=== PATIENT | female | born 1955 | race African-American/Black ===

== ENCOUNTER 2017-04-28 14:16 | Inpatient (IN) | payer MEDICAID ==
[~2017-04-28] VITALS: Ht 162.6 cm; Wt 55.8 kg
[~2017-04-28 14:16] MED LIST: ALBU18HF2 IH; ASPI-1159 PO; BIMA2.5D4 BOTHEYE; CARI350T27 PO; CLON2TAB4 PO; DORZ10DR7 BOTHEYE; FERR325T30 PO; HYDR12.529 PO; IBUP-2030 PO; IPRA4AER IH; LISI-604 PO; MIRT45TA4 PO; NAPH15DR66 BOTHEYE; NICO1PAT15 TD; OMEP20TA2 PO; QUET150T PO
[2017-04-28 15:22] LABS: HEMATOCRIT 32.5 % (36.0-48.0); HEMOGLOBIN 10.7 g/dL (12.0-16.0); MEAN CORPUSCULAR HEMOGLOBIN 25.8 pg (28.0-32.0); MEAN CORPUSCULAR VOLUME 78.6 fL (81.0-99.0); PLATELET 249 x1000/uL (130-400); RED BLOOD CELL COUNT 4.14 mill/uL (4.2-5.4); RED CELL DISTRIBUTION WIDTH 14.1 % (11.6-14.6)
[2017-04-28] MEDS ORDERED: KCL 20MEQ/100ML PREMIX 100 ML IV ONE (20:15)
[2017-04-28] MEDS ORDERED: SODIUM CHLORIDE 0.9% 1,000 ML IV ONE (20:23)
[2017-04-28] MEDS ORDERED: LORAZEPAM 2MG/ML CPJ IM ONE (21:00)
[2017-04-28] MEDS: LORAZEPAM 2MG/ML CPJ IM PRN (23:28)
[2017-04-28] MEDS ORDERED: LORAZEPAM 2MG/ML CPJ IV PRN (23:30)
[2017-04-29] MEDS ORDERED: BRIM.2 BOTHEYE (03:16)
[2017-04-29] MEDS: LORAZEPAM 2MG/ML CPJ IM PRN ×3 (03:32→17:05)
[2017-04-29] MEDS ORDERED: DORZ10DR7 EACHEYE (03:57)
[2017-04-29] MEDS ORDERED: QUET50TA PO (03:57)
[2017-04-29] MEDS ORDERED: OCD PO (03:57)
[2017-04-29] MEDS ORDERED: LISI10TA5 PO (03:57)
[2017-04-29] MEDS ORDERED: ACET1TAB14 PO (03:57)
[2017-04-29] MEDS ORDERED: MIRT15TA6 PO (03:57)
[2017-04-29] MEDS ORDERED: BACL-141 PO (03:57)
[2017-04-29] MEDS: BACLOFEN 10MG TABLET PO SCH ×3 (04:26→19:39)
[2017-04-29] MEDS ORDERED: CLONAZEPAM 0.5MG TABLET PO PRN (09:00)
[2017-04-29] MEDS: NICOTINE 21MG PATCH TOP SCH (09:00)
[2017-04-29] MEDS: ASPIRIN 81MG EC TABLET PO SCH (09:04)
[2017-04-29] MEDS: LISINOPRIL 10MG TABLET PO SCH (09:04)
[2017-04-29] MEDS: CALCIUM CARBONATE/VITAMIN D3 500MG TABLET PO SCH (09:04)
[2017-04-29] MEDS: LEVETIRACETAM 500MG TABLET PO SCH ×2 (09:04→17:00)
[2017-04-29] MEDS: OMEPRAZOLE 20MG CAPSULE EXTENDED RELEASE PO SCH (09:04)
[2017-04-29 12:59] LABS: CARBON DIOXIDE 27 mEq/L (21-32); CHLORIDE 108 mEq/L (98-107)
[2017-04-29] MEDS ORDERED: POTASSIUM CHLORIDE 20MEQ TABLET SR PO ONE (16:30)
[2017-04-29] MEDS ORDERED: POTASSIUM CHLORIDE 20MEQ TABLET SR PO NR (16:45)
[2017-04-29] MEDS ORDERED: POTASSIUM CHLORIDE INJ 40 MEQ in DEXT 5% WATER 250 ML IV NR (18:00)
[2017-04-29] MEDS: QUETIAPINE FUMARATE 50MG TABLET PO SCH (19:40)
[2017-04-30] MEDS: BACLOFEN 10MG TABLET PO SCH ×3 (03:17→20:17)
[2017-04-30] MEDS: OMEPRAZOLE 20MG CAPSULE EXTENDED RELEASE PO SCH ×2 (07:40→09:01)
[2017-04-30] MEDS: LEVETIRACETAM 500MG TABLET PO SCH ×3 (09:00→16:20)
[2017-04-30] MEDS: ASPIRIN 81MG EC TABLET PO SCH ×2 (09:00→09:01)
[2017-04-30] MEDS: CALCIUM CARBONATE/VITAMIN D3 500MG TABLET PO SCH ×2 (09:00→09:01)
[2017-04-30] MEDS: LISINOPRIL 10MG TABLET PO SCH (09:00)
[2017-04-30] MEDS: NICOTINE 21MG PATCH TOP SCH (09:01)
[2017-04-30] MEDS: LORAZEPAM 2MG/ML CPJ IM PRN (09:02)
[2017-04-30 09:32] LABS: BASOPHILS % 1.2 % (0.0-2.0); EOSINOPHILS % 0.7 % (0.0-5.0); HEMATOCRIT. 37.5 % (36.0-48.0); HEMOGLOBIN. 12.4 g/dL (12.0-16.0); LYMPHOCYTES % 38.1 % (20.0-50.0); MEAN CORPUSCULAR VOLUME 78.9 fL (81.0-99.0); MEAN PLATELET VOLUME 8.4 fl (7.4-10.4); MONOCYTES % 11.1 % (2.0-8.0); NEUTROPHILS % 48.9 % (40.0-76.0); PLATELET 237 x1000/uL (130-400); RED BLOOD CELL COUNT 4.75 mill/uL (4.2-5.4); RED CELL DISTRIBUTION WIDTH 14.1 % (11.6-14.6)
[2017-04-30 09:46] LABS: CARBON DIOXIDE 26 mEq/L (21-32); CHLORIDE 106 mEq/L (98-107)
[2017-04-30] MEDS: CARISOPRODOL 350 MG TABLET PO PRN (16:20)
[2017-04-30] MEDS: ACETAMINOPHEN WITH CODEINE 300/60MG TABLET PO PRN (20:05)
[2017-04-30] MEDS: QUETIAPINE FUMARATE 50MG TABLET PO SCH (20:17)
[2017-05-01] MEDS: CARISOPRODOL 350 MG TABLET PO PRN ×2 (00:11→17:03)
[2017-05-01] MEDS: CLONAZEPAM 0.5MG TABLET PO PRN (00:11)
[2017-05-01] MEDS: ACETAMINOPHEN WITH CODEINE 300/60MG TABLET PO PRN ×2 (05:06→17:36)
[2017-05-01] MEDS: BACLOFEN 10MG TABLET PO SCH ×3 (05:06→21:42)
[2017-05-01] MEDS: LORAZEPAM 2MG/ML CPJ IM PRN ×3 (05:46→21:42)
[2017-05-01 06:50] LABS: CARBON DIOXIDE 28 mEq/L (21-32); CHLORIDE 104 mEq/L (98-107)
[2017-05-01 06:51] LABS: BASOPHILS % 0.3 % (0.0-2.0); EOSINOPHILS % 0.4 % (0.0-5.0); HEMATOCRIT. 33.9 % (36.0-48.0); HEMOGLOBIN. 11.1 g/dL (12.0-16.0); LYMPHOCYTES % 39.8 % (20.0-50.0); MEAN CORPUSCULAR HEMOGLOBIN 25.8 pg (28.0-32.0); MEAN CORPUSCULAR VOLUME 78.8 fL (81.0-99.0); MEAN PLATELET VOLUME 8.2 fl (7.4-10.4); MONOCYTES % 8.2 % (2.0-8.0); NEUTROPHILS % 51.3 % (40.0-76.0); PLATELET 213 x1000/uL (130-400); RED BLOOD CELL COUNT 4.31 mill/uL (4.2-5.4); RED CELL DISTRIBUTION WIDTH 13.6 % (11.6-14.6)
[2017-05-01] MEDS: ASPIRIN 81MG EC TABLET PO SCH (08:27)
[2017-05-01] MEDS: LEVETIRACETAM 500MG TABLET PO SCH ×2 (08:27→17:03)
[2017-05-01] MEDS: CALCIUM CARBONATE/VITAMIN D3 500MG TABLET PO SCH (08:27)
[2017-05-01] MEDS: FAMOTIDINE 20MG TABLET PO SCH ×2 (08:27→21:41)
[2017-05-01] MEDS: LISINOPRIL 10MG TABLET PO SCH (08:27)
[2017-05-01] MEDS: NICOTINE 21MG PATCH TOP SCH (08:28)
[2017-05-01] MEDS ORDERED: POTASSIUM CHLORIDE 20MEQ TABLET SR PO NR (12:30)
[2017-05-01] MEDS: QUETIAPINE FUMARATE 50MG TABLET PO SCH (21:42)
[2017-05-02] MEDS: BACLOFEN 10MG TABLET PO SCH ×3 (04:00→21:30)
[2017-05-02] MEDS: LISINOPRIL 10MG TABLET PO SCH (09:00)
[2017-05-02] MEDS: ASPIRIN 81MG EC TABLET PO SCH (10:40)
[2017-05-02] MEDS: NICOTINE 21MG PATCH TOP SCH (10:40)
[2017-05-02] MEDS: FAMOTIDINE 20MG TABLET PO SCH ×2 (10:40→21:30)
[2017-05-02] MEDS: CALCIUM CARBONATE/VITAMIN D3 500MG TABLET PO SCH (10:40)
[2017-05-02] MEDS: LEVETIRACETAM 500MG TABLET PO SCH ×2 (10:40→17:20)
[2017-05-02] MEDS: ACETAMINOPHEN WITH CODEINE 300/60MG TABLET PO PRN (17:20)
[2017-05-02] MEDS: LORAZEPAM 2MG/ML CPJ IM PRN (21:31)
[2017-05-02] MEDS: QUETIAPINE FUMARATE 50MG TABLET PO SCH (21:31)
[2017-05-03] MEDS: BACLOFEN 10MG TABLET PO SCH ×3 (04:56→20:12)
[2017-05-03] MEDS: LORAZEPAM 2MG/ML CPJ IM PRN (04:56)
[2017-05-03] MEDS: ACETAMINOPHEN WITH CODEINE 300/60MG TABLET PO PRN ×2 (08:34→15:35)
[2017-05-03] MEDS: FAMOTIDINE 20MG TABLET PO SCH ×2 (08:36→20:12)
[2017-05-03] MEDS: LEVETIRACETAM 500MG TABLET PO SCH ×2 (08:36→15:35)
[2017-05-03] MEDS: ASPIRIN 81MG EC TABLET PO SCH (08:36)
[2017-05-03] MEDS: LISINOPRIL 10MG TABLET PO SCH (08:58)
[2017-05-03] MEDS: CALCIUM CARBONATE/VITAMIN D3 500MG TABLET PO SCH (09:01)
[2017-05-03] MEDS: NICOTINE 21MG PATCH TOP SCH (09:01)
[2017-05-03 14:23] LABS: BASOPHILS % 0.3 % (0.0-2.0); EOSINOPHILS % 0.5 % (0.0-5.0); HEMATOCRIT. 30.5 % (36.0-48.0); HEMOGLOBIN. 9.8 g/dL (12.0-16.0); MEAN CORPUSCULAR HEMOGLOBIN 25.5 pg (28.0-32.0); MEAN CORPUSCULAR VOLUME 78.9 fL (81.0-99.0); MEAN PLATELET VOLUME 8.3 fl (7.4-10.4); MONOCYTES % 7.5 % (2.0-8.0); NEUTROPHILS % 42.7 % (40.0-76.0); PLATELET 195 x1000/uL (130-400); RED BLOOD CELL COUNT 3.86 mill/uL (4.2-5.4); RED CELL DISTRIBUTION WIDTH 13.6 % (11.6-14.6)
[2017-05-03 14:31] LABS: CARBON DIOXIDE 29 mEq/L (21-32); CHLORIDE 107 mEq/L (98-107)
[2017-05-03] MEDS: CLONAZEPAM 0.5MG TABLET PO PRN (15:35)
[2017-05-03] MEDS: DORZOLAMIDE 2% OPHTH 10 ML BOTTLE EACHEYE SCH (17:53)
[2017-05-03] MEDS: QUETIAPINE FUMARATE 50MG TABLET PO SCH (20:12)
[2017-05-04] MEDS: DORZOLAMIDE 2% OPHTH 10 ML BOTTLE EACHEYE SCH ×3 (05:21→17:24)
[2017-05-04] MEDS: BACLOFEN 10MG TABLET PO SCH ×3 (05:21→20:27)
[2017-05-04 07:02] LABS: BASOPHILS % 0.3 % (0.0-2.0); EOSINOPHILS % 0.6 % (0.0-5.0); HEMATOCRIT. 29.7 % (36.0-48.0); HEMOGLOBIN. 9.6 g/dL (12.0-16.0); LYMPHOCYTES % 50.8 % (20.0-50.0); MEAN CORPUSCULAR HEMOGLOBIN 25.4 pg (28.0-32.0); MEAN CORPUSCULAR VOLUME 78.5 fL (81.0-99.0); MEAN PLATELET VOLUME 8.3 fl (7.4-10.4); MONOCYTES % 8.6 % (2.0-8.0); NEUTROPHILS % 39.7 % (40.0-76.0); PLATELET 193 x1000/uL (130-400); RED BLOOD CELL COUNT 3.79 mill/uL (4.2-5.4); RED CELL DISTRIBUTION WIDTH 13.4 % (11.6-14.6)
[2017-05-04 07:12] LABS: CHLORIDE 107 mEq/L (98-107)
[2017-05-04 07:36] LABS: CARBON DIOXIDE 27 mEq/L (21-32)
[2017-05-04] MEDS: LISINOPRIL 10MG TABLET PO SCH (09:00)
[2017-05-04] MEDS: NICOTINE 21MG PATCH TOP SCH (09:00)
[2017-05-04] MEDS: LEVETIRACETAM 500MG TABLET PO SCH ×2 (09:30→17:24)
[2017-05-04] MEDS: FAMOTIDINE 20MG TABLET PO SCH ×2 (09:31→20:27)
[2017-05-04] MEDS: ASPIRIN 81MG EC TABLET PO SCH (09:31)
[2017-05-04] MEDS: CALCIUM CARBONATE/VITAMIN D3 500MG TABLET PO SCH (09:31)
[2017-05-04] MEDS: CARISOPRODOL 350 MG TABLET PO PRN ×2 (09:47→22:31)
[2017-05-04] MEDS ORDERED: LORAZEPAM 2MG/ML CPJ IV PRN (11:45)
[2017-05-04] MEDS ORDERED: ACETAMINOPHEN 325MG TABLET PO PRN (14:45)
[2017-05-04] MEDS ORDERED: ONDANSETRON HCL 4MG/2ML VIAL IV PRN (14:45)
[2017-05-04] MEDS: HYDROCODONE/ACETAMINOPHEN 5/325MG TABLET PO PRN (15:41)
[2017-05-04] MEDS: QUETIAPINE FUMARATE 50MG TABLET PO SCH (20:27)
[2017-05-04] MEDS: ACETAMINOPHEN WITH CODEINE 300/60MG TABLET PO PRN (20:28)
[2017-05-04] MEDS: BRIMONIDINE 0.2% OPHTH DROPS 5ML BOTHEYE SCH (22:24)
[2017-05-05] MEDS: BACLOFEN 10MG TABLET PO SCH ×3 (04:15→20:43)
[2017-05-05] MEDS: ACETAMINOPHEN WITH CODEINE 300/60MG TABLET PO PRN ×3 (05:04→23:09)
[2017-05-05] MEDS: BRIMONIDINE 0.2% OPHTH DROPS 5ML BOTHEYE SCH ×3 (05:04→23:02)
[2017-05-05] MEDS: LISINOPRIL 10MG TABLET PO SCH (09:00)
[2017-05-05] MEDS: ASPIRIN 81MG EC TABLET PO SCH (09:04)
[2017-05-05] MEDS: FAMOTIDINE 20MG TABLET PO SCH ×2 (09:05→20:43)
[2017-05-05] MEDS: LEVETIRACETAM 500MG TABLET PO SCH ×2 (09:05→17:23)
[2017-05-05] MEDS: DORZOLAMIDE 2% OPHTH 10 ML BOTTLE EACHEYE SCH ×3 (09:05→17:24)
[2017-05-05] MEDS: NICOTINE 21MG PATCH TOP SCH (09:06)
[2017-05-05] MEDS: CALCIUM CARBONATE/VITAMIN D3 500MG TABLET PO SCH (09:12)
[2017-05-05] MEDS ORDERED: BIMA2.5D4 EACHEYE ×2 (14:59→15:37)
[2017-05-05] MEDS ORDERED: NON FORMULARY PATIENT HOME MED EA XX SCH (15:45)
[2017-05-05] MEDS ORDERED: NON FORMULARY PATIENT HOME MED EA OP SCH (16:00)
[2017-05-05] MEDS: QUETIAPINE FUMARATE 50MG TABLET PO SCH (20:43)
[2017-05-05] MEDS: LATANOPROST 0.005% OPHTH DROPS 2.5ML EACHEYE SCH (23:02)
[2017-05-06] MEDS: BACLOFEN 10MG TABLET PO SCH ×3 (04:38→19:42)
[2017-05-06] MEDS: BRIMONIDINE 0.2% OPHTH DROPS 5ML BOTHEYE SCH ×3 (05:20→21:16)
[2017-05-06 05:33] LABS: BASOPHILS % 0.4 % (0.0-2.0); EOSINOPHILS % 0.7 % (0.0-5.0); HEMATOCRIT. 27.9 % (36.0-48.0); HEMOGLOBIN. 9.1 g/dL (12.0-16.0); LYMPHOCYTES % 53.2 % (20.0-50.0); MEAN CORPUSCULAR HEMOGLOBIN 25.5 pg (28.0-32.0); MEAN CORPUSCULAR VOLUME 78.2 fL (81.0-99.0); MEAN PLATELET VOLUME 8.5 fl (7.4-10.4); MONOCYTES % 10.2 % (2.0-8.0); NEUTROPHILS % 35.5 % (40.0-76.0); PLATELET 160 x1000/uL (130-400); RED BLOOD CELL COUNT 3.57 mill/uL (4.2-5.4); RED CELL DISTRIBUTION WIDTH 13.4 % (11.6-14.6)
[2017-05-06 05:54] LABS: CARBON DIOXIDE 28 mEq/L (21-32); CHLORIDE 107 mEq/L (98-107)
[2017-05-06] MEDS: ASPIRIN 81MG EC TABLET PO SCH (08:15)
[2017-05-06] MEDS: LISINOPRIL 10MG TABLET PO SCH ×2 (08:15→08:20)
[2017-05-06] MEDS: LEVETIRACETAM 500MG TABLET PO SCH ×2 (08:16→17:36)
[2017-05-06] MEDS: FAMOTIDINE 20MG TABLET PO SCH ×4 (08:16→21:18)
[2017-05-06] MEDS: ACETAMINOPHEN WITH CODEINE 300/60MG TABLET PO PRN (08:19)
[2017-05-06] MEDS: DORZOLAMIDE 2% OPHTH 10 ML BOTTLE EACHEYE SCH ×3 (08:27→17:36)
[2017-05-06] MEDS: CALCIUM CARBONATE/VITAMIN D3 500MG TABLET PO SCH (08:27)
[2017-05-06] MEDS: NICOTINE 21MG PATCH TOP SCH (08:27)
[2017-05-06] MEDS: HYDROCODONE/ACETAMINOPHEN 5/325MG TABLET PO PRN (19:51)
[2017-05-06] MEDS: QUETIAPINE FUMARATE 50MG TABLET PO SCH ×3 (20:39→21:18)
[2017-05-06] MEDS: LATANOPROST 0.005% OPHTH DROPS 2.5ML EACHEYE SCH (21:15)
[2017-05-07] MEDS: BACLOFEN 10MG TABLET PO SCH ×3 (04:00→21:05)
[2017-05-07] MEDS: BRIMONIDINE 0.2% OPHTH DROPS 5ML BOTHEYE SCH ×4 (06:01→21:13)
[2017-05-07] MEDS: LEVETIRACETAM 500MG TABLET PO SCH ×2 (09:00→17:00)
[2017-05-07] MEDS: NICOTINE 21MG PATCH TOP SCH (09:00)
[2017-05-07] MEDS: DORZOLAMIDE 2% OPHTH 10 ML BOTTLE EACHEYE SCH ×3 (09:00→17:57)
[2017-05-07] MEDS: CALCIUM CARBONATE/VITAMIN D3 500MG TABLET PO SCH (09:00)
[2017-05-07] MEDS: FAMOTIDINE 20MG TABLET PO SCH ×2 (09:00→21:05)
[2017-05-07] MEDS: ASPIRIN 81MG EC TABLET PO SCH (09:00)
[2017-05-07] MEDS ORDERED: HYDRALAZINE 20MG/ML VIAL IV PRN (09:45)
[2017-05-07] MEDS: LISINOPRIL 10MG TABLET PO SCH (10:25)
[2017-05-07 20:11] VITALS: BP 147/92
[2017-05-07] MEDS: LATANOPROST 0.005% OPHTH DROPS 2.5ML EACHEYE SCH ×2 (21:00→21:05)
[2017-05-07] MEDS: QUETIAPINE FUMARATE 50MG TABLET PO SCH (21:05)
== END 2017-05-07 21:35 | DRG 52 ==
LOC: ER 14:19 → 7WST 20:31 → ENRESERV 21:44
PROVIDERS: ADMIT Internal Medicine; ATTEND Internal Medicine
PROC: 02HV33Z Insertion of Infusion Device into Superior Vena Cava, Percutaneous Approach (ICD-10-PCS; principal; 2017-05-03)
PROC: B548ZZA Ultrasonography of Superior Vena Cava, Guidance (ICD-10-PCS; 2017-05-03)
DX: G93.40 Encephalopathy, unspecified (principal); N17.0 Acute kidney failure with tubular necrosis; E87.6 Hypokalemia; D64.9 Anemia, unspecified; I12.9 Hypertensive chronic kidney disease with stage 1 through stage 4 chronic kidney disease, or unspecified chronic kidney disease; N18.9 Chronic kidney disease, unspecified; J45.909 Unspecified asthma, uncomplicated; F29 Unspecified psychosis not due to a substance or known physiological condition; F32.9 Major depressive disorder, single episode, unspecified; Z79.899 Other long term (current) drug therapy
CPT/HCPCS: 36415; 36569; 70551; 71010; 76770; 76937; 80048; 82962; 83735; 85025; 85027; 99285; C1725; C1769; C1893; J2060; J2405; J3480; J7030; J7050; J7060

== ENCOUNTER 2018-12-24 05:24 | Inpatient (IN) | payer MEDICAID ==
[~2018-12-24] VITALS: Ht 182.9 cm; Wt 86.2 kg
[~2018-12-24 05:24] MED LIST changes: +ACET1TAB14 PO; -ALBU18HF2 IH; -ASPI-1159 PO; -BIMA2.5D4 BOTHEYE; +BRIM.2 BOTHEYE; +CALC-30 PO; -CARI350T27 PO; -CLON2TAB4 PO; +DICL75TA5 PO; -DORZ10DR7 BOTHEYE; +DORZ10DR8 EACHEYE; -LISI-604 PO; +LISI10TA5 PO; -MIRT45TA4 PO; +MIRT45TA83 PO; -NAPH15DR66 BOTHEYE; -NICO1PAT15 TD; +OLAN10TA19 PO; -QUET150T PO; +TRAM50TA3 PO; +XALAO EACHEYE
[2018-12-24] MEDS ORDERED: TRANEXAMIC ACID 1,000 MG in SODIUM CHLORIDE 0.9% 100 ML IV SCH (07:00)
[2018-12-24] MEDS ORDERED: LACTATED RINGERS 1,000 ML IV SCH (07:30)
[2018-12-24] MEDS ORDERED: MAGNESIUM HYDROXIDE 400MG/5ML 30ML UDC PO PRN (08:15)
[2018-12-24] MEDS ORDERED: ONDANSETRON HCL 4MG/2ML INJ IV PRN ×2 (08:15→12:45)
[2018-12-24] MEDS ORDERED: ACETAMINOPHEN 325MG TABLET PO PRN (08:15)
[2018-12-24] MEDS ORDERED: EPHEDRINE SULFATE 50MG/ML VIAL ONE (08:24)
[2018-12-24] MEDS ORDERED: SUCCINYLCHOLINE CHLORIDE 200MG/10ML IV ONE (08:24)
[2018-12-24] MEDS ORDERED: PROPOFOL 200MG/20ML VIAL IV ONE (08:24)
[2018-12-24] MEDS ORDERED: LIDOCAINE HCL/PF 1% 10 MG/ML 5ML VIAL ONE (08:24)
[2018-12-24] MEDS ORDERED: DEXAMETHASONE 4MG/ML 1ML VIAL ONE (08:24)
[2018-12-24] MEDS ORDERED: PHENYLEPHRINE HCL 10 MG/ML 1ML (IV VIAL) IV ONE (08:24)
[2018-12-24] MEDS ORDERED: ONDANSETRON HCL 4MG/2ML INJ ONE (08:24)
[2018-12-24] MEDS ORDERED: METOCLOPRAMIDE HCL 10MG/2ML VIAL ONE (08:24)
[2018-12-24] MEDS ORDERED: NEOSTIGMINE METHYLSULFATE 1MG/ML 10 ML VIAL ONE (08:24)
[2018-12-24] MEDS ORDERED: GLYCOPYRROLATE 0.2 MG/ML 2ML VIAL ONE (08:24)
[2018-12-24] MEDS ORDERED: ROCURONIUM BROMIDE 10MG/ML VIAL 5ML IV ONE (08:24)
[2018-12-24] MEDS ORDERED: FENTANYL CITRATE/PF 50MCG/ML 2ML VIAL ONE (08:24)
[2018-12-24] MEDS ORDERED: MIDAZOLAM HCL 2 MG/2 ML VIAL ONE (08:24)
[2018-12-24] MEDS ORDERED: SODIUM CHLORIDE 0.9% 10ML VIAL ONE (08:24)
[2018-12-24] MEDS ORDERED: CEFAZOLIN SODIUM 1000MG/VIAL ONE (09:03)
[2018-12-24] MEDS: HYDROMORPHONE HCL/PF 2MG/ML CPJ IV PRN ×4 (12:48→13:35)
[2018-12-24] MEDS ORDERED: HYDROMORPHONE HCL/PF 2MG/ML CPJ ONE (12:49)
[2018-12-24] MEDS ORDERED: DIPHENHYDRAMINE INJ IV PRN (14:15)
[2018-12-24] MEDS ORDERED: NALOXONE INJ IV PRN (14:15)
[2018-12-24] MEDS ORDERED: HYDROMORPHONE PCA 10MG/50ML IV PRN (14:15)
[2018-12-24] MEDS ORDERED: ONDANSETRON INJ IV PRN (14:15)
[2018-12-24 15:15] VITALS: BP 115/61
[2018-12-24 16:00] VITALS: BP 115/61
[2018-12-24] MEDS: CELECOXIB 200MG CAPSULE PO SCH (18:23)
[2018-12-24] MEDS: DOCUSATE SODIUM 100MG CAPSULE PO SCH (18:23)
[2018-12-24 20:00] VITALS: BP 115/73
[2018-12-24] MEDS: CEFAZOLIN 2,000 MG in DEXT 5% WATER 100 ML IV SCH (22:01)
[2018-12-25] VITALS: BP 127/67
[2018-12-25 04:00] VITALS: BP 149/74
[2018-12-25] MEDS: CEFAZOLIN 2,000 MG in DEXT 5% WATER 100 ML IV SCH (05:26)
[2018-12-25 07:09] LABS: BASOPHILS % 0.1 % (0.0-2.0); HEMATOCRIT. 31.6 % (36.0-48.0); HEMOGLOBIN. 10.5 g/dL (12.0-16.0); LYMPHOCYTES % 19.4 % (20.0-50.0); MEAN CORPUSCULAR HEMOGLOBIN 27.6 pg (28.0-32.0); MEAN CORPUSCULAR VOLUME 83.2 fL (81.0-99.0); MEAN PLATELET VOLUME 7.6 fl (7.4-10.4); MONOCYTES % 9.9 % (2.0-8.0); NEUTROPHILS % 70.6 % (40.0-76.0); PLATELET 169 x1000/uL (130-400); RED CELL DISTRIBUTION WIDTH 13.3 % (11.6-14.6)
[2018-12-25 07:35] LABS: CHLORIDE 107 mEq/L (98-107)
[2018-12-25 08:00] VITALS: BP 123/64
[2018-12-25] MEDS: HYDROCHLOROTHIAZIDE 12.5MG CAPSULE PO SCH (09:49)
[2018-12-25] MEDS: CELECOXIB 200MG CAPSULE PO SCH ×2 (09:49→16:26)
[2018-12-25] MEDS: DOCUSATE SODIUM 100MG CAPSULE PO SCH ×2 (09:49→16:26)
[2018-12-25] MEDS: LISINOPRIL 10MG TABLET PO SCH (09:50)
[2018-12-25] MEDS: ENOXAPARIN 30MG/0.3ML SYR SUBCUT SCH ×2 (11:25→20:46)
[2018-12-25] MEDS: HYDROCODONE/ACETAMINOPHEN 10/325MG TABLET PO PRN ×3 (11:47→23:45)
[2018-12-25 12:00] VITALS: BP 136/71
[2018-12-25 16:00] VITALS: BP 137/77
[2018-12-25 20:00] VITALS: BP 123/68
[2018-12-26] VITALS: BP 104/61
[2018-12-26 04:00] VITALS: BP 126/69
[2018-12-26] MEDS: HYDROCODONE/ACETAMINOPHEN 10/325MG TABLET PO PRN ×2 (06:13→13:53)
[2018-12-26 08:00] VITALS: BP 108/69
[2018-12-26] MEDS: DOCUSATE SODIUM 100MG CAPSULE PO SCH (09:57)
[2018-12-26] MEDS: CELECOXIB 200MG CAPSULE PO SCH (09:57)
[2018-12-26] MEDS: HYDROCHLOROTHIAZIDE 12.5MG CAPSULE PO SCH (09:57)
[2018-12-26] MEDS: ENOXAPARIN 30MG/0.3ML SYR SUBCUT SCH (09:58)
[2018-12-26 12:00] VITALS: BP 140/72
[2018-12-26] MEDS: LISINOPRIL 10MG TABLET PO SCH (13:54)
[2018-12-26 16:00] VITALS: BP 123/66
[2018-12-26 16:10] VITALS: BP 123/66
== END 2018-12-26 17:45 | disposition home or self-care (01) | DRG 302 ==
LOC: OR 05:24 → 6EST 05:25
PROVIDERS: ADMIT Orthopaedic Surgery; ATTEND Orthopaedic Surgery
PROC: 0SRC0J9 Replacement of Right Knee Joint with Synthetic Substitute, Cemented, Open Approach (ICD-10-PCS; principal; 2018-12-24)
PROC: 02HV33Z Insertion of Infusion Device into Superior Vena Cava, Percutaneous Approach (ICD-10-PCS; 2018-12-24)
PROC: B548ZZA Ultrasonography of Superior Vena Cava, Guidance (ICD-10-PCS; 2018-12-24)
DX: M17.11 Unilateral primary osteoarthritis, right knee (principal); K73.9 Chronic hepatitis, unspecified; M06.9 Rheumatoid arthritis, unspecified; E66.3 Overweight; M19.072 Primary osteoarthritis, left ankle and foot; E78.5 Hyperlipidemia, unspecified; F31.30 Bipolar disorder, current episode depressed, mild or moderate severity, unspecified; G89.29 Other chronic pain; I10 Essential (primary) hypertension; J45.909 Unspecified asthma, uncomplicated; M21.069 Valgus deformity, not elsewhere classified, unspecified knee; M21.379 Foot drop, unspecified foot; M65.9 Synovitis and tenosynovitis, unspecified; Z90.710 Acquired absence of both cervix and uterus; Z90.49 Acquired absence of other specified parts of digestive tract; G89.18 Other acute postprocedural pain
CPT/HCPCS: 36415; 36569; 73560; 76937; 77001; 80048; 86850; 86900; 88305; 88311; 97110; 97116; 97163; 97166; 97530; C1713; C1725; C1776; J0171; J0330; J0690; J1100; J1170; J1580; J1650; J2250; J2274; J2370; J2405; J2704; J2710; J2765; J2795; J3010; J3370; J3490; J7050; J7060; L1830; Q9968

== ENCOUNTER 2019-01-01 15:38 | Inpatient (IN) | payer MEDICAID ==
[~2019-01-01] VITALS: Ht 182.9 cm; Wt 86.2 kg
[2019-01-01] MEDS ORDERED: [UNRECOGNIZED DRUG - OTHER] (17:51)
[2019-01-01] MEDS ORDERED: HYDROCODONE/ACETAMINOPHEN 10/325MG TABLET PO ONE (20:00)
[2019-01-01 20:29] LABS: CHLORIDE 104 mEq/L (98-107); PROTHROMBIN TIME 10.3 sec (9.1-11.1)
[2019-01-01 20:31] LABS: HEMATOCRIT. 31.7 % (36.0-48.0); HEMOGLOBIN. 10.4 g/dL (12.0-16.0); MEAN CORPUSCULAR HEMOGLOBIN 27.3 pg (28.0-32.0); MEAN CORPUSCULAR VOLUME 83.7 fL (81.0-99.0); MEAN PLATELET VOLUME 6.8 fl (7.4-10.4); PLATELET 344 x1000/uL (130-400); RED BLOOD CELL COUNT 3.79 mill/uL (4.2-5.4); RED CELL DISTRIBUTION WIDTH 13.5 % (11.6-14.6)
[2019-01-01 21:20] LABS: NUCLEATED RED BLOOD CELLS 2 /100 WBC; PLATELET ESTIMATE NORMAL
[2019-01-01 23:03] VITALS: BP 122/58
[2019-01-02] VITALS: BP 122/58
[2019-01-02] MEDS ORDERED: HYDROCODONE/ACETAMINOPHEN 5/325MG TABLET PO PRN (01:30)
[2019-01-02] MEDS ORDERED: MORPHINE SULFATE 4 MG/ML CPJ (NOT FOR IM USE) IV PRN (01:30)
[2019-01-02 04:00] VITALS: BP 121/67
[2019-01-02] MEDS ORDERED: BUPIVACAINE HCL 0.5% (5MG/ML) 50ML ONE (06:56)
[2019-01-02] MEDS ORDERED: VANCOMYCIN HCL 500 MG/VIAL ONE ×2 (06:57→10:07)
[2019-01-02] MEDS ORDERED: NORMAL SALINE 0.9% 10 ML SYR ONE ×2 (06:57→09:34)
[2019-01-02] MEDS ORDERED: BACITRACIN 50,000 UNITS/VIAL ONE ×2 (06:57→09:35)
[2019-01-02] MEDS ORDERED: BUPIVACAINE/EPINEPH/PF 0.25%/0.0005 10ML ONE (06:59)
[2019-01-02] MEDS ORDERED: MORPHINE SULFATE/PF 1MG/ML 10ML AMP ONE (06:59)
[2019-01-02] MEDS ORDERED: PROPOFOL 200MG/20ML VIAL IV ONE (07:30)
[2019-01-02] MEDS ORDERED: FENTANYL CITRATE/PF 50MCG/ML 2ML VIAL ONE ×2 (07:30→11:20)
[2019-01-02] MEDS ORDERED: MIDAZOLAM HCL 2 MG/2 ML VIAL ONE (07:30)
[2019-01-02] MEDS ORDERED: LIDOCAINE HCL/PF 1% 10 MG/ML 5ML VIAL ONE (07:30)
[2019-01-02] MEDS ORDERED: LIDOCAINE HCL 1% 20ML VIAL (Pyxis) INJ ONE (07:40)
[2019-01-02] MEDS ORDERED: BUPIVACAINE HCL/PF 0.5% (5MG/ML) 10ML ONE (08:27)
[2019-01-02] MEDS ORDERED: TRANEXAMIC ACID 1,000 MG in SODIUM CHLORIDE 0.9% 100 ML IV NR (09:30)
[2019-01-02] MEDS ORDERED: GENTAMICIN SULF 40MG/ML 2ML VIAL ONE (09:34)
[2019-01-02] MEDS ORDERED: ONDANSETRON HCL 4MG/2ML INJ ONE (10:06)
[2019-01-02] MEDS ORDERED: GELATIN SPONGE,ABSORBABLE 12-7MM SPONGE ONE (10:37)
[2019-01-02] MEDS: PIPERACILLIN/TAZ 3.375G PREMIX 50 ML IV SCH ×2 (11:00→20:25)
[2019-01-02] MEDS ORDERED: ONDANSETRON HCL 4MG/2ML INJ IV PRN ×2 (12:00→12:15)
[2019-01-02] MEDS ORDERED: PIPERACILLIN/TAZ 3.375G PREMIX 50 ML IV SCH (12:00)
[2019-01-02] MEDS ORDERED: MAGNESIUM HYDROXIDE 400MG/5ML 30ML UDC PO PRN (12:00)
[2019-01-02] MEDS ORDERED: DEXAMETHASONE 10 MG/ML VIAL IV PRN (12:15)
[2019-01-02] MEDS ORDERED: DIPHENHYDRAMINE 50MG/ML VIAL IV PRN (12:15)
[2019-01-02] MEDS ORDERED: FENTANYL CITRATE/PF 50MCG/ML 2ML VIAL IV PRN (12:15)
[2019-01-02] MEDS: FENTANYL CITRATE/PF 50MCG/ML 2ML VIAL IV PRN ×4 (12:42→14:15)
[2019-01-02] MEDS ORDERED: HYDROMORPHONE PCA 10MG/50ML IV PRN (13:49)
[2019-01-02 16:00] VITALS: BP 135/77
[2019-01-02] MEDS: DOCUSATE SODIUM 100MG CAPSULE PO SCH (17:00)
[2019-01-02] MEDS: HYDROCODONE/ACETAMINOPHEN 10/325MG TABLET PO PRN (17:54)
[2019-01-02 20:00] VITALS: BP 121/62
[2019-01-02 22:23] LABS: CHLORIDE 118 mEq/L (98-107)
[2019-01-03] VITALS: BP 142/81
[2019-01-03] MEDS: VANCOMYCIN 1250MG in DEXTROSE 5% WATER 250ML IV SCH ×2 (03:30→03:37)
[2019-01-03 04:00] VITALS: BP 149/74
[2019-01-03] MEDS: ACETAMINOPHEN 325MG TABLET PO PRN (04:39)
[2019-01-03] MEDS: PIPERACILLIN/TAZ 3.375G PREMIX 50 ML IV SCH ×3 (06:06→19:17)
[2019-01-03] MEDS: HYDROCODONE/ACETAMINOPHEN 10/325MG TABLET PO PRN (06:16)
[2019-01-03] MEDS ORDERED: POTASSIUM CHLORIDE 20MEQ TABLET SR PO NR (06:33)
[2019-01-03 08:00] VITALS: BP 133/69
[2019-01-03] MEDS: HYDROCHLOROTHIAZIDE 12.5MG CAPSULE PO SCH (08:26)
[2019-01-03] MEDS: DOCUSATE SODIUM 100MG CAPSULE PO SCH ×2 (08:27→17:00)
[2019-01-03] MEDS: LISINOPRIL 10MG TABLET PO SCH (08:27)
[2019-01-03 09:08] LABS: BASOPHILS % 0.3 % (0.0-2.0); EOSINOPHILS % 0.2 % (0.0-5.0); HEMATOCRIT. 23.4 % (36.0-48.0); HEMOGLOBIN. 7.6 g/dL (12.0-16.0); MEAN CORPUSCULAR HEMOGLOBIN 27.1 pg (28.0-32.0); MEAN CORPUSCULAR VOLUME 83.5 fL (81.0-99.0); MEAN PLATELET VOLUME 6.9 fl (7.4-10.4); MONOCYTES % 14.5 % (2.0-8.0); PLATELET 281 x1000/uL (130-400); RED CELL DISTRIBUTION WIDTH 13.2 % (11.6-14.6)
[2019-01-03 09:15] LABS: CHLORIDE 108 mEq/L (98-107)
[2019-01-03 12:00] VITALS: BP 132/59
[2019-01-03] MEDS: ZINC SULFATE 220 MG ( 50 ) CAPSULE PO SCH (12:46)
[2019-01-03] MEDS: MULTIVITAMINS,THER W-MINERALS TABLET PO SCH (12:46)
[2019-01-03] MEDS: FERROUS SULFATE 325MG TABLET PO SCH ×2 (12:46→17:42)
[2019-01-03] MEDS: ASCORBIC ACID 500 MG TABLET PO SCH (12:47)
[2019-01-03 16:00] VITALS: BP 130/76
[2019-01-03] MEDS: VANCOMYCIN 1 G PREMIX 200 ML IV SCH (17:42)
[2019-01-03 20:00] VITALS: BP 111/62
[2019-01-03] MEDS: MUPIROCIN 2% OINT 22GM NS SCH (21:09)
[2019-01-03] MEDS: LATANOPROST 0.005% OPHTH DROPS 2.5ML EACHEYE SCH (21:10)
[2019-01-03] MEDS: ZOLPIDEM TARTRATE 5MG TABLET PO PRN (21:23)
[2019-01-04] VITALS: BP 113/70
[2019-01-04] MEDS: ACETAMINOPHEN 325MG TABLET PO PRN ×2 (00:59→20:26)
[2019-01-04] MEDS: PIPERACILLIN/TAZ 3.375G PREMIX 50 ML IV SCH ×3 (03:22→18:09)
[2019-01-04] MEDS: HYDROCODONE/ACETAMINOPHEN 10/325MG TABLET PO PRN ×3 (04:51→18:09)
[2019-01-04] MEDS: VANCOMYCIN 1 G PREMIX 200 ML IV SCH ×2 (06:22→18:09)
[2019-01-04 07:50] LABS: BASOPHILS % 0.2 % (0.0-2.0); CHLORIDE 104 mEq/L (98-107); EOSINOPHILS % 0.4 % (0.0-5.0); HEMATOCRIT. 23.4 % (36.0-48.0); HEMOGLOBIN. 7.7 g/dL (12.0-16.0); LYMPHOCYTES % 13.4 % (20.0-50.0); MEAN CORPUSCULAR HEMOGLOBIN 27.3 pg (28.0-32.0); MEAN CORPUSCULAR VOLUME 83.2 fL (81.0-99.0); MEAN PLATELET VOLUME 7.1 fl (7.4-10.4); PLATELET 279 x1000/uL (130-400); RED BLOOD CELL COUNT 2.82 mill/uL (4.2-5.4); RED CELL DISTRIBUTION WIDTH 13.4 % (11.6-14.6)
[2019-01-04 08:00] VITALS: BP 103/61
[2019-01-04] MEDS: LISINOPRIL 10MG TABLET PO SCH (09:27)
[2019-01-04] MEDS: HYDROCHLOROTHIAZIDE 12.5MG CAPSULE PO SCH (09:27)
[2019-01-04] MEDS: ASCORBIC ACID 500 MG TABLET PO SCH (09:27)
[2019-01-04] MEDS: MULTIVITAMINS,THER W-MINERALS TABLET PO SCH (09:27)
[2019-01-04] MEDS: DOCUSATE SODIUM 100MG CAPSULE PO SCH ×2 (09:27→18:09)
[2019-01-04] MEDS: ZINC SULFATE 220 MG ( 50 ) CAPSULE PO SCH (09:27)
[2019-01-04] MEDS: FERROUS SULFATE 325MG TABLET PO SCH ×3 (09:27→18:09)
[2019-01-04] MEDS: MUPIROCIN 2% OINT 22GM NS SCH ×2 (09:28→20:29)
[2019-01-04 11:58] VITALS: BP 111/69
[2019-01-04 16:05] VITALS: BP 111/60
[2019-01-04 20:00] VITALS: BP 103/58
[2019-01-04] MEDS: ZOLPIDEM TARTRATE 5MG TABLET PO PRN (20:26)
[2019-01-04] MEDS: LATANOPROST 0.005% OPHTH DROPS 2.5ML EACHEYE SCH (20:30)
[2019-01-04] MEDS ORDERED: POTASSIUM CHLORIDE 20MEQ TABLET SR PO SCH (22:45)
[2019-01-05] VITALS (7 sets, daily range): BP systolic 102–127; BP diastolic 53–68
[2019-01-05] MEDS: PIPERACILLIN/TAZ 3.375G PREMIX 50 ML IV SCH ×3 (03:30→18:05)
[2019-01-05] MEDS ORDERED: METHYLPREDNISOLONE ACETATE 40MG/ML VIAL IM SCH (05:00)
[2019-01-05] MEDS: VANCOMYCIN 1 G PREMIX 200 ML IV SCH ×2 (05:03→18:05)
[2019-01-05] MEDS: HYDROCODONE/ACETAMINOPHEN 10/325MG TABLET PO PRN ×4 (05:25→22:05)
[2019-01-05 06:42] LABS: CHLORIDE 105 mEq/L (98-107)
[2019-01-05 06:48] LABS: BASOPHILS % 0.2 % (0.0-2.0); EOSINOPHILS % 0.7 % (0.0-5.0); HEMOGLOBIN. 7.5 g/dL (12.0-16.0); LYMPHOCYTES % 11.6 % (20.0-50.0); MEAN CORPUSCULAR HEMOGLOBIN 28.3 pg (28.0-32.0); MEAN CORPUSCULAR VOLUME 82.6 fL (81.0-99.0); MONOCYTES % 10.1 % (2.0-8.0); NEUTROPHILS % 77.4 % (40.0-76.0); PLATELET 280 x1000/uL (130-400); RED BLOOD CELL COUNT 2.67 mill/uL (4.2-5.4); RED CELL DISTRIBUTION WIDTH 13.5 % (11.6-14.6)
[2019-01-05 06:57] LABS: VANCOMYCIN TROUGH 18.1 ug/mL (5.0-10.0)
[2019-01-05] MEDS ORDERED: LIDOCAINE HCL 1% 20ML VIAL (Pyxis) INJ INFIL SCH (07:00)
[2019-01-05] MEDS ORDERED: ETHYL CHLORIDE CAN TOP SCH (07:00)
[2019-01-05] MEDS: ASCORBIC ACID 500 MG TABLET PO SCH (09:25)
[2019-01-05] MEDS: DOCUSATE SODIUM 100MG CAPSULE PO SCH ×2 (09:25→18:05)
[2019-01-05] MEDS: HYDROCHLOROTHIAZIDE 12.5MG CAPSULE PO SCH (09:25)
[2019-01-05] MEDS: FERROUS SULFATE 325MG TABLET PO SCH ×3 (09:25→18:05)
[2019-01-05] MEDS: LISINOPRIL 10MG TABLET PO SCH (09:25)
[2019-01-05] MEDS: MULTIVITAMINS,THER W-MINERALS TABLET PO SCH (09:25)
[2019-01-05] MEDS: ZINC SULFATE 220 MG ( 50 ) CAPSULE PO SCH (09:25)
[2019-01-05] MEDS: MUPIROCIN 2% OINT 22GM NS SCH ×2 (09:26→20:24)
[2019-01-05] MEDS ORDERED: POTASSIUM CHLORIDE 20MEQ TABLET SR PO NR (16:00)
[2019-01-05] MEDS ORDERED: BUPIVACAINE HCL/PF 0.5% (5MG/ML) 10ML INFIL ONE (17:00)
[2019-01-05] MEDS: COLCHICINE 0.6MG TABLET PO SCH (18:05)
[2019-01-05] MEDS ORDERED: METHYLPREDNISOLONE SOD SUCC 40 MG/ML VIAL IV NR (18:30)
[2019-01-05] MEDS ORDERED: ETHYL CHLORIDE CAN TOP NR (18:30)
[2019-01-05] MEDS: BUPIVACAINE HCL/PF 0.5% (5MG/ML) 10ML INFIL NR ×3 (18:51→18:53)
[2019-01-05] MEDS: LATANOPROST 0.005% OPHTH DROPS 2.5ML EACHEYE SCH (20:24)
[2019-01-05] MEDS: ZOLPIDEM TARTRATE 5MG TABLET PO PRN (21:00)
[2019-01-06] VITALS: BP 105/59
[2019-01-06] MEDS: PIPERACILLIN/TAZ 3.375G PREMIX 50 ML IV SCH ×2 (02:49→12:05)
[2019-01-06 04:00] VITALS: BP 144/69
[2019-01-06] MEDS: VANCOMYCIN 1 G PREMIX 200 ML IV SCH ×2 (05:29→17:42)
[2019-01-06] MEDS: HYDROCODONE/ACETAMINOPHEN 10/325MG TABLET PO PRN ×3 (05:38→20:12)
[2019-01-06 08:00] VITALS: BP 123/71
[2019-01-06] MEDS: ZINC SULFATE 220 MG ( 50 ) CAPSULE PO SCH (09:15)
[2019-01-06] MEDS: MULTIVITAMINS,THER W-MINERALS TABLET PO SCH (09:16)
[2019-01-06] MEDS: DOCUSATE SODIUM 100MG CAPSULE PO SCH ×2 (09:16→17:42)
[2019-01-06] MEDS: COLCHICINE 0.6MG TABLET PO SCH (09:16)
[2019-01-06] MEDS: FERROUS SULFATE 325MG TABLET PO SCH ×3 (09:17→20:12)
[2019-01-06] MEDS: LISINOPRIL 10MG TABLET PO SCH (09:17)
[2019-01-06] MEDS: HYDROCHLOROTHIAZIDE 12.5MG CAPSULE PO SCH (09:17)
[2019-01-06] MEDS: ASCORBIC ACID 500 MG TABLET PO SCH (09:17)
[2019-01-06 16:00] VITALS: BP 122/61
[2019-01-06 16:01] LABS: BASOPHILS % 0.3 % (0.0-2.0); EOSINOPHILS % 0.1 % (0.0-5.0); HEMATOCRIT. 23.9 % (36.0-48.0); LYMPHOCYTES % 14.1 % (20.0-50.0); MEAN CORPUSCULAR HEMOGLOBIN 28.1 pg (28.0-32.0); MEAN CORPUSCULAR VOLUME 83.5 fL (81.0-99.0); MONOCYTES % 4.2 % (2.0-8.0); NEUTROPHILS % 81.3 % (40.0-76.0); PLATELET 331 x1000/uL (130-400); RED BLOOD CELL COUNT 2.86 mill/uL (4.2-5.4); RED CELL DISTRIBUTION WIDTH 13.9 % (11.6-14.6)
[2019-01-06] MEDS: MUPIROCIN 2% OINT 22GM NS SCH ×2 (17:39→21:00)
[2019-01-06 20:00] VITALS: BP 126/72
[2019-01-06] MEDS: LATANOPROST 0.005% OPHTH DROPS 2.5ML EACHEYE SCH (22:16)
[2019-01-06] MEDS: ZOLPIDEM TARTRATE 5MG TABLET PO PRN (22:43)
[2019-01-07 04:00] VITALS: BP 140/68
[2019-01-07] MEDS: HYDROCODONE/ACETAMINOPHEN 10/325MG TABLET PO PRN ×2 (04:32→10:23)
[2019-01-07] MEDS: VANCOMYCIN 1 G PREMIX 200 ML IV SCH ×2 (05:16→18:00)
[2019-01-07 08:00] VITALS: BP 123/72
[2019-01-07 08:17] LABS: BASOPHILS % 0.3 % (0.0-2.0); EOSINOPHILS % 0.9 % (0.0-5.0); HEMATOCRIT. 24.8 % (36.0-48.0); HEMOGLOBIN. 8.2 g/dL (12.0-16.0); LYMPHOCYTES % 17.8 % (20.0-50.0); MEAN CORPUSCULAR HEMOGLOBIN 27.7 pg (28.0-32.0); MEAN CORPUSCULAR VOLUME 83.3 fL (81.0-99.0); MEAN PLATELET VOLUME 6.9 fl (7.4-10.4); PLATELET 345 x1000/uL (130-400); RED BLOOD CELL COUNT 2.97 mill/uL (4.2-5.4); RED CELL DISTRIBUTION WIDTH 13.9 % (11.6-14.6)
[2019-01-07] MEDS: DOCUSATE SODIUM 100MG CAPSULE PO SCH ×2 (08:32→16:03)
[2019-01-07] MEDS: HYDROCHLOROTHIAZIDE 12.5MG CAPSULE PO SCH (08:38)
[2019-01-07] MEDS: LISINOPRIL 10MG TABLET PO SCH (08:38)
[2019-01-07] MEDS: ZINC SULFATE 220 MG ( 50 ) CAPSULE PO SCH (08:39)
[2019-01-07] MEDS: ASCORBIC ACID 500 MG TABLET PO SCH (08:39)
[2019-01-07] MEDS: MUPIROCIN 2% OINT 22GM NS SCH (08:39)
[2019-01-07] MEDS: FERROUS SULFATE 325MG TABLET PO SCH ×3 (08:39→17:50)
[2019-01-07] MEDS: HYDROXYCHLOROQUINE SULFATE 200MG TABLET PO SCH ×2 (08:39→17:00)
[2019-01-07] MEDS: MULTIVITAMINS,THER W-MINERALS TABLET PO SCH (08:39)
[2019-01-07] MEDS: COLCHICINE 0.6MG TABLET PO SCH (08:39)
[2019-01-07 12:00] VITALS: BP 106/63
[2019-01-07 12:52] VITALS: BP 106/63
[2019-01-07 15:54] VITALS: BP 111/66
[2019-01-07 16:27] VITALS: BP 111/66
[2019-01-07] MEDS ORDERED: HYDROCODONE/ACETAMINOPHEN 10/325MG TABLET PO NR (16:30)
[2019-01-08 09:10] LABS: G6PD RBC 2.94 x10E6/uL (3.77-5.28)
[2019-01-08 15:10] LABS: ANTI-DNA DOUBLE STRANDED QUANT < 1 IU/mL (0-9); G6PD QUANTITATIVE 325 (146-376)
[2019-01-09 15:12] LABS: ANGIOTENSION CONVERTING ENZYME < 15 U/L (14-82); ANTI-MYELOPEROXIDASE AB < 9.0 U/mL (0.0-9.0); ANTI-PROTEINASE 3 ABS < 3.5 U/mL (0.0-3.5)
[2019-01-10 09:06] LABS: ANTI-CARDIOLIPIN AB IGA < 9 APL U/mL (0-11); ANTI-CARDIOLIPIN AB IGG < 9 GPL U/mL (0-14); ANTI-CARDIOLIPIN AB IGM < 9 MPL U/mL (0-12)
[2019-01-11 15:08] LABS: ATYPICAL P-ANCA <1:20 titer (Neg:<1:20); CYTOPLASMIC C-ANCA <1:20 titer (Neg:<1:20); PERINUCLEAR P-ANCA <1:20 titer (Neg:<1:20)
[2019-01-12 09:06] LABS: ANA IFA Negative (.)
== END 2019-01-07 19:25 | DRG 302 ==
LOC: ER 15:38 → 6EST 21:00 → ENRESERV 22:06
PROVIDERS: ADMIT Internal Medicine; ATTEND Internal Medicine
PROC: 0SPC09Z Removal of Liner from Right Knee Joint, Open Approach (ICD-10-PCS; principal; 2019-01-02)
PROC: 0S9C3ZZ Drainage of Right Knee Joint, Percutaneous Approach (ICD-10-PCS; 2019-01-02)
PROC: 0SUV09Z Supplement Right Knee Joint, Tibial Surface with Liner, Open Approach (ICD-10-PCS; 2019-01-02)
PROC: 02HV33Z Insertion of Infusion Device into Superior Vena Cava, Percutaneous Approach (ICD-10-PCS; 2019-01-02)
PROC: B5181ZA Fluoroscopy of Superior Vena Cava using Low Osmolar Contrast, Guidance (ICD-10-PCS; 2019-01-02)
PROC: B548ZZA Ultrasonography of Superior Vena Cava, Guidance (ICD-10-PCS; 2019-01-02)
PROC: 0SCC0ZZ Extirpation of Matter from Right Knee Joint, Open Approach (ICD-10-PCS; 2019-01-02)
PROC: 30233N1 Transfusion of Nonautologous Red Blood Cells into Peripheral Vein, Percutaneous Approach (ICD-10-PCS; 2019-01-05)
PROC: 0S9D3ZZ Drainage of Left Knee Joint, Percutaneous Approach (ICD-10-PCS; 2019-01-05)
PROC: 3E0U33Z Introduction of Anti-inflammatory into Joints, Percutaneous Approach (ICD-10-PCS; 2019-01-05)
DX: M25.061 Hemarthrosis, right knee (principal); N17.9 Acute kidney failure, unspecified; D62 Acute posthemorrhagic anemia; M96.840 Postprocedural hematoma of a musculoskeletal structure following a musculoskeletal system procedure; I10 Essential (primary) hypertension; E78.5 Hyperlipidemia, unspecified; J45.909 Unspecified asthma, uncomplicated; F17.200 Nicotine dependence, unspecified, uncomplicated; F31.30 Bipolar disorder, current episode depressed, mild or moderate severity, unspecified; H40.9 Unspecified glaucoma; M11.262 Other chondrocalcinosis, left knee; M21.062 Valgus deformity, not elsewhere classified, left knee; M50.30 Other cervical disc degeneration, unspecified cervical region; M51.36 Other intervertebral disc degeneration, lumbar region; G89.29 Other chronic pain; M54.5 Low back pain; X58.XXXA Exposure to other specified factors, initial encounter; Z96.652 Presence of left artificial knee joint; M06.862 Other specified rheumatoid arthritis, left knee; M06.861 Other specified rheumatoid arthritis, right knee; Z90.49 Acquired absence of other specified parts of digestive tract; Z90.710 Acquired absence of both cervix and uterus; Z86.19 Personal history of other infectious and parasitic diseases; Z79.899 Other long term (current) drug therapy; Z22.322 Carrier or suspected carrier of Methicillin resistant Staphylococcus aureus; Z79.01 Long term (current) use of anticoagulants; Z91.19 Patient's noncompliance with other medical treatment and regimen; Y92.89 Other specified places as the place of occurrence of the external cause
CPT/HCPCS: 36415; 36569; 71045; 72052; 73560; 76937; 77001; 80048; 80202; 82164; 82270; 82955; 83520; 83540; 83550; 84550; 85041; 85044; 85651; 86147; 86225; 86256; 86431; 86850; 86880; 86900; 86920; 87070; 87075; 88304; 88311; 89060; 93005; 93970; 97116; 97162; 97530; 99285; C1725; J0171; J1030; J1170; J1200; J1580; J2250; J2270; J2274; J2405; J2543; J2704; J2920; J3010; J3370; J3490; J7040; J7050; J7060; P9016

== ENCOUNTER → 2020-03-31 | Outpatient (CLI) | payer MEDICAID ==
[~2020-03-31] MED LIST changes: -ACET1TAB14 PO; +AMLO5TAB88 PO; +FAMO20TA8 PO; +GABA-531 PO; +NETA2.5D EACHEYE; -OMEP20TA2 PO; +[UNRECOGNIZED DRUG - OTHER]
== END | disposition home or self-care (01) ==
LOC: LAB 08:57
PROVIDERS: ATTEND Neurological Surgery
DX: Z01.818 Encounter for other preprocedural examination (principal); Z11.59 Encounter for screening for other viral diseases
CPT/HCPCS: U0003-CS

== ENCOUNTER 2020-04-07 23:33 | Inpatient (IN) | payer MEDICAID ==
[~2020-04-07] VITALS: Ht 180.3 cm; Wt 90.7 kg
[2020-04-07 23:33] VITALS: BP_SYST 147; BP_DIAS 82; BP_DIAS 83
[~2020-04-07 23:33] MED LIST changes: -AMLO5TAB88 PO; -FAMO20TA8 PO; -GABA-531 PO
[2020-04-08] MEDS ORDERED: ACETAMINOPHEN 325MG TABLET PO PRN
[2020-04-08] MEDS ORDERED: MORPHINE SULFATE 4 MG/ML CPJ (NOT FOR IM USE) IV PRN
[2020-04-08] MEDS ORDERED: DIPHENHYDRAMINE 50MG/ML VIAL IV PRN
[2020-04-08] MEDS ORDERED: NALOXONE HCL 0.4 MG/ML 1ML VIAL IV PRN
[2020-04-08] MEDS ORDERED: ONDANSETRON HCL 4MG/2ML INJ IV PRN
[2020-04-08] MEDS: OXYCODONE HCL/ACETAMINOPHEN 5/325MG TABLET PO PRN ×4 (00:45→21:05)
[2020-04-08] MEDS: DEXT 5%/LACTATED RINGERS 1,000 ML IV SCH ×2 (02:04→13:24)
[2020-04-08] MEDS: PANTOPRAZOLE 40MG DR TABLET PO SCH (06:20)
[2020-04-08 06:48] LABS: BASOPHILS % 0.3 % (0.0-2.0); EOSINOPHILS % 1.3 % (0.0-5.0); HEMATOCRIT. 22.7 % (36.0-48.0); HEMOGLOBIN. 7.8 g/dL (12.0-16.0); LYMPHOCYTES % 19.6 % (20.0-50.0); MEAN CORPUSCULAR HEMOGLOBIN 28.3 pg (28.0-32.0); MEAN CORPUSCULAR VOLUME 82.5 fL (81.0-99.0); MONOCYTES % 10.7 % (2.0-8.0); NEUTROPHILS % 68.1 % (40.0-76.0); PLATELET 178 x1000/uL (130-400); RED BLOOD CELL COUNT 2.75 mill/uL (4.2-5.4); RED CELL DISTRIBUTION WIDTH 12.7 % (11.6-14.6)
[2020-04-08 07:36] LABS: CHLORIDE 109 mEq/L (98-107)
[2020-04-08 08:00] VITALS: BP 169/88
[2020-04-08] MEDS ORDERED: POTASSIUM CHLORIDE 20MEQ/PACKET PO NR (09:00)
[2020-04-08] MEDS: DOCUSATE SODIUM 100MG CAPSULE PO SCH ×2 (09:38→16:06)
[2020-04-08] MEDS: NICOTINE 7MG PATCH TD SCH (09:38)
[2020-04-08] MEDS: LISINOPRIL 10MG TABLET PO SCH (09:38)
[2020-04-08] MEDS: BRIMONIDINE 0.2% OPHTH DROPS 5ML BOTHEYE SCH ×2 (09:39→16:05)
[2020-04-08] MEDS: DORZOLAMIDE 2% OPHTH 10 ML BOTTLE EACHEYE SCH ×2 (09:39→16:05)
[2020-04-08] MEDS ORDERED: LACTULOSE 20G/30ML UDC PO PRN (11:00)
[2020-04-08] MEDS ORDERED: BISACODYL 10MG SUPP PR PRN ×3 (11:00)
[2020-04-08] MEDS ORDERED: NA PHOS,M-B/NA PHOS,DI-BA ENEMA 118ML PR NR (11:00)
[2020-04-08] MEDS: LACTULOSE 20G/30ML UDC PO SCH ×3 (11:49→18:40)
[2020-04-08] MEDS: FERROUS SULFATE 325MG TABLET PO SCH (16:06)
[2020-04-08 16:35] LABS: TOTAL IRON BINDING CAPACITY 191 ug/dL (250-450)
[2020-04-08 21:00] VITALS: BP 158/90
[2020-04-08] MEDS: POLYETHYLENE GLYCOL 3350 (17GM) 1 DOSE PACK PO SCH (21:00)
[2020-04-08] MEDS: OLANZAPINE 10MG TABLET PO SCH (21:03)
[2020-04-08] MEDS: MIRTAZAPINE 15MG TABLET PO SCH (21:04)
[2020-04-08] MEDS: LATANOPROST 0.005% OPHTH DROPS 2.5ML EACHEYE SCH (21:05)
[2020-04-08] MEDS: RHOPRESSA OPTHALMIC OP SCH (21:06)
[2020-04-08 21:25] LABS: CLARITY URINE CLEAR (CLEAR); COLOR URINE YELLOW (YELLOW); KETONES URINE NEGATIVE (NEGATIVE); LEUKOCYTE ESTERASE URINE NEGATIVE (NEGATIVE); NITRITE URINE NEGATIVE (NEGATIVE); OCCULT BLOOD URINE NEGATIVE (NEGATIVE); PH URINE 7.5 (4.5-8.0); PROTEIN URINE NEGATIVE (NEGATIVE); SPECIFIC GRAVITY URINE 1.015 (1.005-1.030)
[2020-04-09] MEDS: DEXT 5%/LACTATED RINGERS 1,000 ML IV SCH ×2 (03:20→16:00)
[2020-04-09] MEDS: OXYCODONE HCL/ACETAMINOPHEN 5/325MG TABLET PO PRN ×5 (05:12→18:50)
[2020-04-09] MEDS: PANTOPRAZOLE 40MG DR TABLET PO SCH (05:12)
[2020-04-09] MEDS: DOCUSATE SODIUM 100MG CAPSULE PO SCH ×3 (09:00→16:12)
[2020-04-09] MEDS: BRIMONIDINE 0.2% OPHTH DROPS 5ML BOTHEYE SCH ×3 (09:00→17:00)
[2020-04-09] MEDS: DORZOLAMIDE 2% OPHTH 10 ML BOTTLE EACHEYE SCH ×3 (09:00→17:00)
[2020-04-09] MEDS ORDERED: NA PHOS,M-B/NA PHOS,DI-BA ENEMA 118ML PR PRN (09:00)
[2020-04-09] MEDS: LISINOPRIL 10MG TABLET PO SCH (09:12)
[2020-04-09] MEDS: FERROUS SULFATE 325MG TABLET PO SCH ×3 (09:12→17:06)
[2020-04-09] MEDS: NICOTINE 7MG PATCH TD SCH (09:12)
[2020-04-09 09:17] VITALS: BP 150/68
[2020-04-09 20:00] VITALS: BP 136/64
[2020-04-09 20:12] LABS: BASOPHILS % 0.5 % (0.0-2.0); EOSINOPHILS % 1.9 % (0.0-5.0); HEMATOCRIT. 22.9 % (36.0-48.0); LYMPHOCYTES % 27.2 % (20.0-50.0); MEAN CORPUSCULAR HEMOGLOBIN 28.4 pg (28.0-32.0); MEAN CORPUSCULAR VOLUME 81.7 fL (81.0-99.0); MONOCYTES % 8.4 % (2.0-8.0); RED CELL DISTRIBUTION WIDTH 12.6 % (11.6-14.6)
[2020-04-09 20:18] LABS: CHLORIDE 108 mEq/L (98-107)
[2020-04-09 20:24] LABS: PHOSPHORUS 2.6 mg/dL (2.5-4.9)
[2020-04-09 20:25] LABS: TOTAL IRON BINDING CAPACITY 192 ug/dL (250-450)
[2020-04-09 20:32] LABS: FERRITIN 170 ng/mL (10-291)
[2020-04-09] MEDS: POLYETHYLENE GLYCOL 3350 (17GM) 1 DOSE PACK PO SCH (21:00)
[2020-04-09 21:07] LABS: FOLIC ACID (FOLATE) SERUM >20 ng/mL ng/mL (>5.38)
[2020-04-09 21:10] LABS: MEAN PLATELET VOLUME 7.1 fl (7.4-10.4)
[2020-04-09 21:11] LABS: PLATELET 219 x1000/uL (130-400)
[2020-04-09 21:18] LABS: VITAMIN B12 SERUM 917 pg/mL (211-911)
[2020-04-09] MEDS: LATANOPROST 0.005% OPHTH DROPS 2.5ML EACHEYE SCH (22:10)
[2020-04-09] MEDS: RHOPRESSA OPTHALMIC OP SCH (22:10)
[2020-04-09] MEDS: MIRTAZAPINE 15MG TABLET PO SCH (22:11)
[2020-04-09] MEDS: OLANZAPINE 10MG TABLET PO SCH (22:11)
[2020-04-09] MEDS: FAMOTIDINE 20MG TABLET PO SCH (22:11)
[2020-04-10] MEDS: DEXT 5%/LACTATED RINGERS 1,000 ML IV SCH (05:05)
[2020-04-10] MEDS: OXYCODONE HCL/ACETAMINOPHEN 5/325MG TABLET PO PRN ×2 (06:28→10:26)
[2020-04-10 08:00] VITALS: BP 173/90
[2020-04-10 08:14] VITALS: BP 173/90
[2020-04-10] MEDS: BRIMONIDINE 0.2% OPHTH DROPS 5ML BOTHEYE SCH (09:00)
[2020-04-10] MEDS: DOCUSATE SODIUM 100MG CAPSULE PO SCH ×2 (09:00→16:05)
[2020-04-10] MEDS: DORZOLAMIDE 2% OPHTH 10 ML BOTTLE EACHEYE SCH (09:00)
[2020-04-10] MEDS: NICOTINE 7MG PATCH TD SCH (09:30)
[2020-04-10] MEDS: LISINOPRIL 10MG TABLET PO SCH (09:31)
[2020-04-10] MEDS: FERROUS SULFATE 325MG TABLET PO SCH ×3 (09:31→16:04)
[2020-04-10] MEDS: GABAPENTIN 300MG CAPSULE PO SCH ×2 (13:57→21:21)
[2020-04-10] MEDS: OXYCODONE HCL 5MG TABLET PO PRN ×2 (13:58→18:37)
[2020-04-10] MEDS: FAMOTIDINE 20MG TABLET PO SCH ×2 (13:58→21:21)
[2020-04-10] MEDS ORDERED: POTASSIUM CHLORIDE 20MEQ TABLET SR PO NR (16:00)
[2020-04-10 20:00] VITALS: BP 131/64
[2020-04-10] MEDS: POLYETHYLENE GLYCOL 3350 (17GM) 1 DOSE PACK PO SCH (21:00)
[2020-04-10] MEDS: OLANZAPINE 10MG TABLET PO SCH (21:21)
[2020-04-10] MEDS: MIRTAZAPINE 15MG TABLET PO SCH (21:21)
[2020-04-10] MEDS: AMLODIPINE 5MG TABLET PO SCH (21:22)
[2020-04-10] MEDS: RHOPRESSA OPTHALMIC OP SCH (21:23)
[2020-04-10] MEDS: LATANOPROST 0.005% OPHTH DROPS 2.5ML EACHEYE SCH (21:23)
[2020-04-11] MEDS: OXYCODONE HCL 5MG TABLET PO PRN ×5 (01:23→17:49)
[2020-04-11] MEDS: GABAPENTIN 300MG CAPSULE PO SCH ×3 (05:49→21:27)
[2020-04-11] MEDS: DEXT 5%/LACTATED RINGERS 1,000 ML IV SCH ×2 (08:00→21:20)
[2020-04-11 08:19] VITALS: BP 151/79
[2020-04-11] MEDS: LISINOPRIL 10MG TABLET PO SCH (08:44)
[2020-04-11] MEDS: FAMOTIDINE 20MG TABLET PO SCH ×2 (08:44→21:28)
[2020-04-11] MEDS: DOCUSATE SODIUM 100MG CAPSULE PO SCH ×2 (08:44→17:48)
[2020-04-11] MEDS: FERROUS SULFATE 325MG TABLET PO SCH ×3 (08:44→17:48)
[2020-04-11] MEDS: AMLODIPINE 5MG TABLET PO SCH ×2 (08:45→21:28)
[2020-04-11] MEDS: NICOTINE 7MG PATCH TD SCH (09:44)
[2020-04-11 15:46] LABS: CHLORIDE 108 mEq/L (98-107)
[2020-04-11] MEDS ORDERED: POTASSIUM CHLORIDE 20MEQ TABLET SR PO NR (17:00)
[2020-04-11 20:00] VITALS: BP 117/58
[2020-04-11] MEDS: MIRTAZAPINE 15MG TABLET PO SCH (21:27)
[2020-04-11] MEDS: RHOPRESSA OPTHALMIC OP SCH (21:27)
[2020-04-11] MEDS: LATANOPROST 0.005% OPHTH DROPS 2.5ML EACHEYE SCH (21:27)
[2020-04-11] MEDS: OLANZAPINE 10MG TABLET PO SCH (21:28)
[2020-04-11] MEDS: POLYETHYLENE GLYCOL 3350 (17GM) 1 DOSE PACK PO SCH (21:28)
[2020-04-12] MEDS: GABAPENTIN 300MG CAPSULE PO SCH ×3 (06:16→21:06)
[2020-04-12] MEDS: OXYCODONE HCL 5MG TABLET PO PRN ×5 (06:16→20:15)
[2020-04-12 06:35] LABS: BASOPHILS % 0.8 % (0.0-2.0); EOSINOPHILS % 1.1 % (0.0-5.0); HEMATOCRIT. 23.9 % (36.0-48.0); HEMOGLOBIN. 8.1 g/dL (12.0-16.0); LYMPHOCYTES % 29.7 % (20.0-50.0); MEAN CORPUSCULAR HEMOGLOBIN 27.9 pg (28.0-32.0); MEAN CORPUSCULAR VOLUME 82.5 fL (81.0-99.0); MEAN PLATELET VOLUME 6.5 fl (7.4-10.4); MONOCYTES % 10.1 % (2.0-8.0); NEUTROPHILS % 58.3 % (40.0-76.0); PLATELET 384 x1000/uL (130-400); RED BLOOD CELL COUNT 2.89 mill/uL (4.2-5.4); RED CELL DISTRIBUTION WIDTH 12.9 % (11.6-14.6)
[2020-04-12 06:37] LABS: CHLORIDE 111 mEq/L (98-107)
[2020-04-12 07:57] VITALS: BP 132/74
[2020-04-12] MEDS: LISINOPRIL 10MG TABLET PO SCH (08:39)
[2020-04-12] MEDS: FERROUS SULFATE 325MG TABLET PO SCH ×3 (08:39→16:23)
[2020-04-12] MEDS: AMLODIPINE 5MG TABLET PO SCH ×2 (08:39→21:06)
[2020-04-12] MEDS: DOCUSATE SODIUM 100MG CAPSULE PO SCH ×2 (08:39→16:22)
[2020-04-12] MEDS: NICOTINE 7MG PATCH TD SCH (08:39)
[2020-04-12] MEDS: FAMOTIDINE 20MG TABLET PO SCH ×2 (10:22→21:05)
[2020-04-12] MEDS ORDERED: BISACODYL 10MG SUPP PR PRN (15:45)
[2020-04-12] MEDS ORDERED: BISACODYL 10MG SUPP PR NR (15:45)
[2020-04-12 20:00] VITALS: BP 109/47
[2020-04-12] MEDS: POLYETHYLENE GLYCOL 3350 (17GM) 1 DOSE PACK PO SCH (21:00)
[2020-04-12] MEDS: RHOPRESSA OPTHALMIC OP SCH (21:05)
[2020-04-12] MEDS: MIRTAZAPINE 15MG TABLET PO SCH (21:05)
[2020-04-12] MEDS: LATANOPROST 0.005% OPHTH DROPS 2.5ML EACHEYE SCH (21:05)
[2020-04-12] MEDS: OLANZAPINE 10MG TABLET PO SCH (21:06)
[2020-04-13] MEDS: OXYCODONE HCL 5MG TABLET PO PRN ×4 (03:15→18:23)
[2020-04-13 05:08] LABS: 25-HYDROXY VITAMIN D3 8.8 ng/mL (.)
[2020-04-13] MEDS: GABAPENTIN 300MG CAPSULE PO SCH ×3 (06:46→21:02)
[2020-04-13] MEDS ORDERED: SODIUM BICARBONATE 4% (2.4MEQ) 5ML VIAL IV ONE (07:26)
[2020-04-13] MEDS ORDERED: LIDOCAINE HCL 1% 20ML VIAL (Pyxis) INJ ONE (07:26)
[2020-04-13 08:00] VITALS: BP 109/52
[2020-04-13] MEDS: AMLODIPINE 5MG TABLET PO SCH ×2 (09:00→20:32)
[2020-04-13] MEDS: LISINOPRIL 10MG TABLET PO SCH (09:00)
[2020-04-13] MEDS: FERROUS SULFATE 325MG TABLET PO SCH ×3 (09:43→16:25)
[2020-04-13] MEDS: FAMOTIDINE 20MG TABLET PO SCH ×2 (09:43→20:32)
[2020-04-13] MEDS: NICOTINE 7MG PATCH TD SCH (09:43)
[2020-04-13] MEDS: DOCUSATE SODIUM 100MG CAPSULE PO SCH ×2 (09:43→16:24)
[2020-04-13] MEDS: DEXT 5%/LACTATED RINGERS 1,000 ML IV SCH ×2 (12:58)
[2020-04-13] MEDS ORDERED: ERGOCALCIFEROL 50000UNITS CAPSULE PO SCH (18:00)
[2020-04-13 20:00] VITALS: BP 121/71
[2020-04-13] MEDS: MIRTAZAPINE 15MG TABLET PO SCH (20:31)
[2020-04-13] MEDS: LATANOPROST 0.005% OPHTH DROPS 2.5ML EACHEYE SCH (20:31)
[2020-04-13] MEDS: POLYETHYLENE GLYCOL 3350 (17GM) 1 DOSE PACK PO SCH (20:31)
[2020-04-13] MEDS: RHOPRESSA OPTHALMIC OP SCH (20:31)
[2020-04-13] MEDS: OLANZAPINE 10MG TABLET PO SCH (20:32)
[2020-04-14] MEDS: OXYCODONE HCL 5MG TABLET PO PRN ×5 (00:42→19:36)
[2020-04-14] MEDS: DEXT 5%/LACTATED RINGERS 1,000 ML IV SCH (02:40)
[2020-04-14] MEDS: GABAPENTIN 300MG CAPSULE PO SCH ×3 (05:46→21:20)
[2020-04-14 07:29] VITALS: BP 145/78
[2020-04-14] MEDS: FAMOTIDINE 20MG TABLET PO SCH ×2 (08:00→21:21)
[2020-04-14] MEDS: FERROUS SULFATE 325MG TABLET PO SCH ×3 (08:57→16:23)
[2020-04-14] MEDS: DOCUSATE SODIUM 100MG CAPSULE PO SCH ×2 (08:57→16:23)
[2020-04-14] MEDS: AMLODIPINE 5MG TABLET PO SCH ×2 (08:57→21:21)
[2020-04-14] MEDS: LISINOPRIL 10MG TABLET PO SCH (08:57)
[2020-04-14] MEDS: NICOTINE 7MG PATCH TD SCH (08:57)
[2020-04-14] MEDS ORDERED: IPRATROPIUM/ALBUTEROL 0.5-3(2.5)MG/3ML NEB HHN PRN (13:30)
[2020-04-14] MEDS: BISACODYL 10MG SUPP PR SCH (14:30)
[2020-04-14] MEDS: LACTULOSE 20G/30ML UDC PO SCH ×3 (14:49→21:19)
[2020-04-14 20:00] VITALS: BP 134/61
[2020-04-14] MEDS: POLYETHYLENE GLYCOL 3350 (17GM) 1 DOSE PACK PO SCH (21:00)
[2020-04-14] MEDS: MIRTAZAPINE 15MG TABLET PO SCH (21:20)
[2020-04-14] MEDS: OLANZAPINE 10MG TABLET PO SCH (21:21)
[2020-04-14] MEDS: RHOPRESSA OPTHALMIC OP SCH (21:24)
[2020-04-14] MEDS: LATANOPROST 0.005% OPHTH DROPS 2.5ML EACHEYE SCH (21:24)
[2020-04-15] MEDS: GABAPENTIN 300MG CAPSULE PO SCH ×3 (05:38→21:15)
[2020-04-15] MEDS: OXYCODONE HCL 5MG TABLET PO PRN ×4 (05:57→20:31)
[2020-04-15 07:07] LABS: BASOPHILS % 0.4 % (0.0-2.0); EOSINOPHILS % 0.5 % (0.0-5.0); HEMATOCRIT. 23.5 % (36.0-48.0); HEMOGLOBIN. 7.8 g/dL (12.0-16.0); LYMPHOCYTES % 23.3 % (20.0-50.0); MEAN CORPUSCULAR HEMOGLOBIN 27.8 pg (28.0-32.0); MEAN CORPUSCULAR VOLUME 83.4 fL (81.0-99.0); MEAN PLATELET VOLUME 6.3 fl (7.4-10.4); MONOCYTES % 8.2 % (2.0-8.0); NEUTROPHILS % 67.6 % (40.0-76.0); PLATELET 379 x1000/uL (130-400); RED BLOOD CELL COUNT 2.82 mill/uL (4.2-5.4); RED CELL DISTRIBUTION WIDTH 13.2 % (11.6-14.6)
[2020-04-15 07:20] LABS: CHLORIDE 109 mEq/L (98-107)
[2020-04-15 07:42] LABS: HEPATITIS B SURFACE ANTIGEN NEGATIVE
[2020-04-15 08:11] LABS: HEPATITIS A AB IGM NEGATIVE (NEGATIVE)
[2020-04-15] MEDS: LISINOPRIL 10MG TABLET PO SCH (09:00)
[2020-04-15] MEDS: BISACODYL 10MG SUPP PR SCH (09:00)
[2020-04-15] MEDS: AMLODIPINE 5MG TABLET PO SCH ×2 (09:00→21:16)
[2020-04-15] MEDS: FERROUS SULFATE 325MG TABLET PO SCH ×3 (09:03→17:46)
[2020-04-15] MEDS: LACTULOSE 20G/30ML UDC PO SCH ×3 (09:04→17:00)
[2020-04-15] MEDS: NICOTINE 7MG PATCH TD SCH (09:04)
[2020-04-15] MEDS: FAMOTIDINE 20MG TABLET PO SCH ×2 (09:04→21:15)
[2020-04-15] MEDS: DOCUSATE SODIUM 100MG CAPSULE PO SCH ×2 (09:04→17:46)
[2020-04-15 09:05] VITALS: BP 107/50
[2020-04-15] MEDS ORDERED: BISACODYL 10MG SUPP PR NR (12:45)
[2020-04-15 20:00] VITALS: BP 121/57
[2020-04-15] MEDS: POLYETHYLENE GLYCOL 3350 (17GM) 1 DOSE PACK PO SCH (21:00)
[2020-04-15] MEDS: RHOPRESSA OPTHALMIC OP SCH (21:14)
[2020-04-15] MEDS: OLANZAPINE 10MG TABLET PO SCH (21:15)
[2020-04-15] MEDS: MIRTAZAPINE 15MG TABLET PO SCH (21:15)
[2020-04-15] MEDS: LATANOPROST 0.005% OPHTH DROPS 2.5ML EACHEYE SCH (21:15)
[2020-04-15 22:15] VITALS: BP 121/57
[2020-04-16] MEDS: GABAPENTIN 300MG CAPSULE PO SCH ×3 (05:54→21:35)
[2020-04-16] MEDS: OXYCODONE HCL 5MG TABLET PO PRN ×3 (05:57→19:44)
[2020-04-16 07:55] VITALS: BP 123/69
[2020-04-16 08:00] VITALS: BP 123/69
[2020-04-16] MEDS: FERROUS SULFATE 325MG TABLET PO SCH ×3 (08:35→17:17)
[2020-04-16] MEDS: LISINOPRIL 10MG TABLET PO SCH (08:35)
[2020-04-16] MEDS: AMLODIPINE 5MG TABLET PO SCH ×2 (08:35→21:00)
[2020-04-16] MEDS: FAMOTIDINE 20MG TABLET PO SCH ×2 (08:35→21:35)
[2020-04-16] MEDS: BISACODYL 10MG SUPP PR SCH (08:35)
[2020-04-16] MEDS: DOCUSATE SODIUM 100MG CAPSULE PO SCH ×2 (08:35→17:17)
[2020-04-16] MEDS: NICOTINE 7MG PATCH TD SCH (08:35)
[2020-04-16] MEDS ORDERED: GABA-531 PO (13:41)
[2020-04-16] MEDS ORDERED: AMLO5TAB88 PO (13:41)
[2020-04-16] MEDS ORDERED: FAMO20TA8 PO (13:41)
[2020-04-16 20:00] VITALS: BP 110/57
[2020-04-16] MEDS: POLYETHYLENE GLYCOL 3350 (17GM) 1 DOSE PACK PO SCH (21:00)
[2020-04-16] MEDS: LATANOPROST 0.005% OPHTH DROPS 2.5ML EACHEYE SCH (21:34)
[2020-04-16] MEDS: OLANZAPINE 10MG TABLET PO SCH (21:36)
[2020-04-16] MEDS: MIRTAZAPINE 15MG TABLET PO SCH (21:36)
[2020-04-16] MEDS: RHOPRESSA OPTHALMIC OP SCH (21:37)
[2020-04-17] MEDS: OXYCODONE HCL 5MG TABLET PO PRN ×3 (04:06→13:37)
[2020-04-17] MEDS: GABAPENTIN 300MG CAPSULE PO SCH ×2 (05:51→13:36)
[2020-04-17 08:04] VITALS: BP 119/83
[2020-04-17] MEDS: FAMOTIDINE 20MG TABLET PO SCH (08:40)
[2020-04-17] MEDS: NICOTINE 7MG PATCH TD SCH (08:40)
[2020-04-17] MEDS: AMLODIPINE 5MG TABLET PO SCH (08:40)
[2020-04-17] MEDS: DOCUSATE SODIUM 100MG CAPSULE PO SCH (08:40)
[2020-04-17] MEDS: LISINOPRIL 10MG TABLET PO SCH (08:40)
[2020-04-17] MEDS: FERROUS SULFATE 325MG TABLET PO SCH ×2 (08:40→13:36)
[2020-04-17] MEDS: BISACODYL 10MG SUPP PR SCH (09:00)
[2020-04-17 13:59] VITALS: BP 115/60
== END 2020-04-17 15:24 | disposition home health service (06) | DRG 347 ==
PROVIDERS: ADMIT Physical Medicine & Rehabilitation Spinal Cord Injury Medicine; ATTEND Internal Medicine
PROC: 02PYX3Z Removal of Infusion Device from Great Vessel, External Approach (ICD-10-PCS; principal; 2020-04-13)
PROC: 02HV33Z Insertion of Infusion Device into Superior Vena Cava, Percutaneous Approach (ICD-10-PCS; 2020-04-13)
PROC: B5181ZA Fluoroscopy of Superior Vena Cava using Low Osmolar Contrast, Guidance (ICD-10-PCS; 2020-04-13)
DX: M47.26 Other spondylosis with radiculopathy, lumbar region (principal); D69.6 Thrombocytopenia, unspecified; E11.42 Type 2 diabetes mellitus with diabetic polyneuropathy; E46 Unspecified protein-calorie malnutrition; G82.20 Paraplegia, unspecified; K59.2 Neurogenic bowel, not elsewhere classified; Z87.891 Personal history of nicotine dependence; Z90.710 Acquired absence of both cervix and uterus; K59.00 Constipation, unspecified; J44.9 Chronic obstructive pulmonary disease, unspecified; G89.4 Chronic pain syndrome; I10 Essential (primary) hypertension; F31.9 Bipolar disorder, unspecified; E87.6 Hypokalemia; E78.5 Hyperlipidemia, unspecified; D50.9 Iron deficiency anemia, unspecified; M75.02 Adhesive capsulitis of left shoulder; B19.20 Unspecified viral hepatitis C without hepatic coma; E66.9 Obesity, unspecified; M06.9 Rheumatoid arthritis, unspecified; M11.20 Other chondrocalcinosis, unspecified site; M48.061 Spinal stenosis, lumbar region without neurogenic claudication; Z96.653 Presence of artificial knee joint, bilateral; R53.81 Other malaise; Z68.27 Body mass index [BMI] 27.0-27.9, adult
CPT/HCPCS: 36415; 36573; 80048; 80053; 81003; 82270; 82306; 82607; 82728; 82746; 83540; 83550; 83735; 84100; 84134; 84443; 85025; 86705; 86709; 86803; 87340; 93970; 97110; 97112; 97116; 97163; 97167; 97530; 97535; 97760; C1725; J3490; J7121

== ENCOUNTER 2021-06-29 09:13 | Inpatient (IN) | payer MEDICARE, MEDICAID ==
[~2021-06-29] VITALS: Ht 180.3 cm; Wt 82.0 kg
[~2021-06-29 09:13] MED LIST changes: +AMLO5TAB88 PO; -CALC-30 PO; +DEXTROSE 50% WATER 50ML SYRINGE IV ONE; +EPINEPHRINE 0.1MG/ML (1:10,000) 10ML SYR ONE; +FAMO20TA8 PO; +GABA-532 PO; -IBUP-2030 PO; +LISI10TA26 PO; -LISI10TA5 PO; +SODIUM BICARBONATE 8.4% 1 MEQ/ML 50ML SYR IV ONE
[2021-06-29] MEDS ORDERED: SODIUM CHLORIDE 0.9% 1000ML BAG (SEPSIS BOLUS) IV ONE (09:30)
[2021-06-29] MEDS ORDERED: PIPERACILLIN/TAZ 3.375G PREMIX 50 ML IV ONE (09:30)
[2021-06-29] MEDS ORDERED: VANCOMYCIN 1 G PREMIX 200 ML IV ONE (09:30)
[2021-06-29 10:30] LABS: HEMATOCRIT. 35.5 % (36.0-48.0); HEMOGLOBIN. 11.4 g/dL (12.0-16.0); MEAN CORPUSCULAR HEMOGLOBIN 26.6 pg (28.0-32.0); MEAN CORPUSCULAR VOLUME 83.1 fL (81.0-99.0); MEAN PLATELET VOLUME 7.9 fl (7.4-10.4); PLATELET 222 x1000/uL (130-400); RED BLOOD CELL COUNT 4.27 mill/uL (4.2-5.4)
[2021-06-29 10:37] LABS: CHLORIDE 102 mEq/L (98-107)
[2021-06-29 10:40] LABS: INR 1.1; PROTHROMBIN TIME 11.3 sec (9.6-11.0)
[2021-06-29 11:44] LABS: PLATELET ESTIMATE NORMAL
[2021-06-29] MEDS ORDERED: LORAZEPAM 2MG/ML CPJ IM STA (12:10)
[2021-06-29] MEDS ORDERED: HALOPERIDOL LACTATE 5MG/ML VIAL IM ONE (12:15)
[2021-06-29] MEDS ORDERED: LIDOCAINE HCL 1% 20ML VIAL (Pyxis) INJ ONE (14:07)
[2021-06-29] MEDS ORDERED: LORAZEPAM 2MG/ML CPJ IM PRN (14:15)
[2021-06-29] MEDS: NOREPINEPHRINE 8 MG in DEXT 5% WATER 242 ML IV PRN (17:32)
[2021-06-29 17:43] LABS: CLARITY URINE CLEAR (CLEAR); COLOR URINE DARK YELLOW (YELLOW); KETONES URINE TRACE (NEGATIVE); LEUKOCYTE ESTERASE URINE TRACE (NEGATIVE); NITRITE URINE NEGATIVE (NEGATIVE); OCCULT BLOOD URINE NEGATIVE (NEGATIVE); PROTEIN URINE TRACE (NEGATIVE); SPECIFIC GRAVITY URINE 1.019 (1.005-1.030); UROBILINOGEN URINE 0.2 E.U./dL (0.2-1.0)
[2021-06-29] MEDS ORDERED: SODIUM CHLORIDE 0.9% 1,000 ML IV SCH (18:45)
[2021-06-29] MEDS ORDERED: ONDANSETRON HCL 4MG/2ML INJ IV PRN (19:15)
[2021-06-29] MEDS ORDERED: HYDROCODONE/ACETAMINOPHEN 5/325MG TABLET PO PRN (19:15)
[2021-06-29] MEDS ORDERED: LORAZEPAM 0.5MG TABLET PO PRN (19:15)
[2021-06-29] MEDS ORDERED: IPRATROPIUM/ALBUTEROL 0.5-3(2.5)MG/3ML NEB HHN PRN (19:15)
[2021-06-29] MEDS ORDERED: DOCUSATE SODIUM 100MG CAPSULE PO PRN (19:15)
[2021-06-29] MEDS ORDERED: ACETAMINOPHEN 325MG TABLET PO PRN ×2 (19:15)
[2021-06-29] MEDS ORDERED: CLONIDINE 0.1MG TABLET PO PRN (19:15)
[2021-06-29] MEDS ORDERED: OLANZAPINE 10MG TABLET PO SCH (21:00)
[2021-06-29] MEDS ORDERED: MIRTAZAPINE 15MG TABLET PO SCH (21:00)
[2021-06-29] MEDS ORDERED: PIPERACILLIN/TAZOBACTAM 3.375 G in DEXTROSE 5% WATER 50 ML IV SCH (21:00)
[2021-06-29] MEDS: FAMOTIDINE 20MG TABLET PO SCH (21:49)
[2021-06-29 23:24] LABS: BG BASE EXCESS -21.1 mmol/L (-2.0-2.0); BG CARBOXYHEMOGLOBIN 0.9 % (0.5-1.5); BG DEOXYHEMOGLOBIN 1.8 % (0.0-5.0); BG FRACTION INSPIRED OXYGEN 100; BG HCO3 ACT 10.1 mmol/L (22.0-26.0); BG METHEMOGLOBIN 0.3 % (0.0-1.5); BG OXYGEN SATURATION 98.2 % (92.0-98.5); BG PCO2 45.4 mmHg (35.0-45.0); BG PH 6.966 (7.350-7.450); BG PO2 146.1 mmHg (75.0-100.0); BG SAMPLE SITE RIGHT RADIAL; BG TOTAL HEMOGLOBIN 11.3 g/dL (12.0-18.0); BG VENT MODE VENT - AC
[2021-06-29] MEDS ORDERED: EPINEPHRINE 5 MG in SODIUM CHLORIDE 0.9% 245 ML IV STA (23:29)
[2021-06-29] MEDS ORDERED: SODIUM CHLORIDE 0.9% 1,000 ML IV ONE (23:30)
[2021-06-29] MEDS ORDERED: HYDROCORTISONE SOD SUCCINATE 100 MG/2 ML VIAL IV ONE (23:30)
[2021-06-30] MEDS ORDERED: EPINEPHRINE 5 MG in SODIUM CHLORIDE 0.9% 245 ML IV PRN
[2021-06-30] MEDS: NOREPINEPHRINE 8 MG in DEXT 5% WATER 242 ML IV PRN (01:56)
[2021-06-30] MEDS ORDERED: SODIUM CHLORIDE 0.9% IV PRN (03:00)
[2021-06-30] MEDS ORDERED: EPINEPHRINE IV PRN (03:00)
[2021-06-30] MEDS ORDERED: EPINEPHRINE 10 MG in SODIUM CHLORIDE 0.9% 240 ML IV PRN (05:30)
[2021-06-30] MEDS ORDERED: PIPERACILLIN/TAZOBACTAM 3.375 G in DEXTROSE 5% WATER 50 ML IV SCH (06:00)
[2021-06-30] MEDS ORDERED: FAMOTIDINE 20MG/2ML VIAL IV SCH (06:00)
[2021-06-30] MEDS ORDERED: SODIUM BICARBONATE 8.4% 1 MEQ/ML 50ML SYR IV SCH ×2 (06:30→06:45)
[2021-06-30] MEDS: FAMOTIDINE 20MG TABLET PO SCH (06:30)
[2021-06-30 07:00] VITALS: BP 119/78
[2021-06-30] MEDS ORDERED: PHENYLEPHRINE 100 MG in DEXT 5% WATER 240 ML IV PRN (08:15)
[2021-06-30] MEDS ORDERED: ATROPINE SULFATE 1MG/ML VIAL IV ONE (08:30)
[2021-06-30] MEDS ORDERED: ATROPINE SULFATE 1MG/10ML SYR ONE ×3 (08:36→09:25)
[2021-06-30] MEDS ORDERED: SODIUM BICARBONATE 8.4% 1 MEQ/ML 50ML SYR IV ONE (08:43)
[2021-06-30] MEDS ORDERED: DEXTROSE 50% WATER 50ML SYRINGE IV ONE ×3 (08:43→09:01)
[2021-06-30] MEDS ORDERED: EPINEPHRINE 0.1MG/ML (1:10,000) 10ML SYR ONE ×3 (08:43→09:23)
[2021-06-30] MEDS ORDERED: DEXTROSE 10% WATER 500 ML IV ONE (08:45)
[2021-06-30 09:20] LABS: *AMPHETAMINES SCREEN URINE NEGATIVE (NEGATIVE); *BARBITURATES SCREEN URINE NEGATIVE (NEGATIVE)
[2021-06-30 09:21] LABS: *BENZODIAZEPINES SCREEN URINE NEGATIVE (NEGATIVE); *COCAINE SCREEN URINE NEGATIVE (NEGATIVE); METHADONE URINE SCREEN NEGATIVE (NEGATIVE); OPIATES URINE SCREEN PRESUMTIVE POSITIVE (NEGATIVE); PHENCYCLIDINE URINE SCREEN NEGATIVE (NEGATIVE)
[2021-06-30 09:22] LABS: CANNABINOID URINE SCREEN NEGATIVE (NEGATIVE)
[2021-06-30] MEDS ORDERED: SODIUM BICARBONATE 8.4% MEQ/ML 50ML VIAL IV ONE (09:24)
[2021-06-30] MEDS ORDERED: VANCOMYCIN 500 MG PREMIX 100 ML IV NR (12:00)
== END 2021-06-30 11:39 | DRG 720 ==
LOC: ER 09:13 → EDBEDREQTM 11:08 → EDBEDREQ 11:08 → EDBEDREQSVC 11:08 → MICUSO 12:36 → EDBEDREQ 12:50 → EDBEDREQTM 12:50 → EDBEDREQSVC 06-30 01:08 → CANBEDREQ 06-30 15:52
PROVIDERS: ADMIT Internal Medicine; ATTEND Internal Medicine
PROC: 5A1935Z Respiratory Ventilation, Less than 24 Consecutive Hours (ICD-10-PCS; 2021-06-29)
PROC: 0BH17EZ Insertion of Endotracheal Airway into Trachea, Via Natural or Artificial Opening (ICD-10-PCS; 2021-06-29)
PROC: 05HY33Z Insertion of Infusion Device into Upper Vein, Percutaneous Approach (ICD-10-PCS; 2021-06-29)
PROC: B54MZZA Ultrasonography of Right Upper Extremity Veins, Guidance (ICD-10-PCS; 2021-06-29)
PROC: 5A12012 Performance of Cardiac Output, Single, Manual (ICD-10-PCS; principal; 2021-06-30)
PROC: 5A2204Z Restoration of Cardiac Rhythm, Single (ICD-10-PCS; 2021-06-30)
DX: A41.9 Sepsis, unspecified organism (principal); I46.9 Cardiac arrest, cause unspecified; J96.01 Acute respiratory failure with hypoxia; K72.00 Acute and subacute hepatic failure without coma; R65.21 Severe sepsis with septic shock; E87.4 Mixed disorder of acid-base balance; D63.8 Anemia in other chronic diseases classified elsewhere; E43 Unspecified severe protein-calorie malnutrition; B19.20 Unspecified viral hepatitis C without hepatic coma; E78.5 Hyperlipidemia, unspecified; F31.9 Bipolar disorder, unspecified; G89.4 Chronic pain syndrome; I10 Essential (primary) hypertension; J44.9 Chronic obstructive pulmonary disease, unspecified; M06.9 Rheumatoid arthritis, unspecified; Z90.710 Acquired absence of both cervix and uterus; F17.210 Nicotine dependence, cigarettes, uncomplicated; A04.72 Enterocolitis due to Clostridium difficile, not specified as recurrent; N19 Unspecified kidney failure
CPT/HCPCS: 36415; 36600; 71045; 74176; 76937; 80053; 80076; 80202; 80305; 81003; 82375; 82805; 82962; 83605; 84145; 84484; 85025; 93005; 94002; 99291; C1725; C1769; J0461; J1630; J1720; J2060; J2370; J2543; J3370; J3490; J7030; J7040; J7050; J7060